=== PATIENT | female | born 1985 | race Caucasian/White ===

== ENCOUNTER 2016-10-01 00:01 | Inpatient (IN) | payer OTHER, BC ==
[~2016-10-01] VITALS: Ht 157.5 cm; Wt 70.5 kg
[2016-10-01] VITALS (22 sets, daily range): BP systolic 100–143; BP diastolic 51–83; PULSE 49–114; TEMP 89–98.7
[~2016-10-01 00:01] MED LIST: ENBREL50 MG/ML SC; FLOMAX 0.40.4 MG/CAP PO; NORCO 325 MG-51 TAB PO; PERCOCET 325 MG1 TA2 PO; TRINESSA 281 TAB PO; ULTRAM 50MG TAB50 MG PO; ZOFRAN8 MG PO
[2016-10-01] MEDS ORDERED: MEDROL 4MG DOSPA4 MG PO (00:31)
[2016-10-01] MEDS ORDERED: BENADRYL25 M2 PO (00:32)
[2016-10-01 01:47] LABS: BASO % 0.2 % (0.0-2.0); EOS # 0.1 (0.0-0.7); EOS % 1.3 % (0-4.0); GRAN # 7.4 (1.4-6.5); LYMPH # 1.9 (1.2-3.4); MEAN CELL VOLUME 77 fl (80.0-100.0); MEAN CORPUSCULAR HGB CONC 30 g/dl (33.0-37.0); MEAN PLATELET VOLUME 12.2 fl (7.4-10.4); MONO # 0.7 (0.1-0.6); MONO % 6.8 % (1.7-9.3); PLATELET COUNT 242 K/mm3 (130-400); RED BLOOD COUNT 4.01 M/mm3 (4.10-5.30); REDCELL DISTRIBUTION WIDTH-CV 17.9 % (11.5-14.5); WHITE BLOOD COUNT 10.3 K/mm3 (4.8-10.8)
[2016-10-01 01:48] LABS: HEMATOCRIT 30.7 % (37.0-47.0); HEMOGLOBIN 9.3 g/dl (12.5-16.0); MEAN CORPUSCULAR HEMOGLOBIN 23 pg (27.0-31.0)
[2016-10-01 03:02] LABS: ADJUSTED CALCIUM 9.3 mg/dL (8.4-10.2); ALBUMIN 3.5 gm/dL (3.5-5.0); BILIRUBIN,TOTAL 0.7 mg/dL (0.0-1.0); CALCIUM 8.9 mg/dL (8.4-10.2); CREATININE, serum 0.56 mg/dL (0.52-1.25); POTASSIUM 3.9 mmol/L (3.4-5.0); TOTAL PROTEIN 7.1 gm/dL (6.4-8.2)
[2016-10-01 03:21] LABS: PH 5 (5-8); SQUAMOUS EPITHELIAL 0-2 /hpf; URINE APPEARANCE Clear; URINE BACTERIA None Seen /hpf; URINE BILIRUBIN Negative (NEGATIVE); URINE BLOOD Negative (NEGATIVE); URINE COLOR Yellow; URINE GLUCOSE Negative (NEGATIVE); URINE KETONE Negative (NEGATIVE); URINE UROBILINOGEN Negative (NEGATIVE); URINE WBC 0-2 /hpf
[2016-10-02] VITALS (17 sets, daily range): BP systolic 106–120; BP diastolic 59–77; PULSE 53–85; TEMP 97.7–98.5
[2016-10-02 06:47] LABS: MEAN CELL VOLUME 80 fl (80.0-100.0); MEAN CORPUSCULAR HGB CONC 29 g/dl (33.0-37.0); MEAN PLATELET VOLUME 11.2 fl (7.4-10.4); PLATELET COUNT 163 K/mm3 (130-400); RED BLOOD COUNT 2.61 M/mm3 (4.10-5.30); REDCELL DISTRIBUTION WIDTH-CV 18.1 % (11.5-14.5); WHITE BLOOD COUNT 17.5 K/mm3 (4.8-10.8)
[2016-10-02 06:54] LABS: ADD PATHOLOGY DIFF REVIEW NO; HEMATOCRIT 20.9 % (37.0-47.0); HEMOGLOBIN 6.1 g/dl (12.5-16.0); MEAN CORPUSCULAR HEMOGLOBIN 23 pg (27.0-31.0)
[2016-10-02 09:02] LABS: ANISOCYTOSIS 2+; BAND 4 % (0-10); HYPOCHROMIA 2+; MICROCYTOSIS 2+; NEUTROPHILS 75 % (42.0-75.2); TOTAL CELLS COUNTED 100
[2016-10-02 09:03] LABS: POLYCHROMASIA 1+
[2016-10-02 09:04] LABS: PLATELET ESTIMATE NORMAL (NORMAL)
[2016-10-03 07:37] LABS: BASO % 0.2 % (0.0-2.0); EOS # 0.1 (0.0-0.7); EOS % 0.6 % (0-4.0); GRAN # 8.9 (1.4-6.5); GRAN % 67.3 % (42.2-75.2); LYMPH # 2.9 (1.2-3.4); LYMPH % 22.3 % (20.0-51.0); MEAN CELL VOLUME 82 fl (80.0-100.0); MEAN CORPUSCULAR HGB CONC 30 g/dl (33.0-37.0); MEAN PLATELET VOLUME 11.8 fl (7.4-10.4); MONO # 0.9 (0.1-0.6); MONO % 7.1 % (1.7-9.3); PLATELET COUNT 156 K/mm3 (130-400); RED BLOOD COUNT 3.13 M/mm3 (4.10-5.30); REDCELL DISTRIBUTION WIDTH-CV 17.8 % (11.5-14.5); WHITE BLOOD COUNT 13.2 K/mm3 (4.8-10.8)
[2016-10-03 07:54] LABS: HEMATOCRIT 25.8 % (37.0-47.0); HEMOGLOBIN 7.8 g/dl (12.5-16.0); MEAN CORPUSCULAR HEMOGLOBIN 25 pg (27.0-31.0)
[2016-10-03] MEDS ORDERED: PERCOCET 325 MG1 TA2 PO (08:26)
[2016-10-03] MEDS ORDERED: IBU800 M1 PO (08:26)
[2016-10-03 08:29] VITALS: BP 100/60; PULSE 51; TEMP 98.2
== END 2016-10-03 11:55 | disposition home or self-care (01) | DRG 775 ==
LOC: LDRO 00:01 → LDR 01:00 → OB 01:00
PROVIDERS: Obstetrics & Gynecology; Student in an Organized Health Care Education/Training Program
PROC: 10E0XZZ Delivery of Products of Conception, External Approach (ICD-10-PCS; principal; 2016-10-01)
PROC: 0HQ9XZZ Repair Perineum Skin, External Approach (ICD-10-PCS; 2016-10-01)
DX: O99.824 Streptococcus B carrier state complicating childbirth (principal); O99.89 Other specified diseases and conditions complicating pregnancy, childbirth and the puerperium; M06.9 Rheumatoid arthritis, unspecified; O77.0 Labor and delivery complicated by meconium in amniotic fluid; O69.1XX0 Labor and delivery complicated by cord around neck, with compression, not applicable or unspecified; O69.89X0 Labor and delivery complicated by other cord complications, not applicable or unspecified; O70.0 First degree perineal laceration during delivery; O99.02 Anemia complicating childbirth; D64.9 Anemia, unspecified; Z3A.39 39 weeks gestation of pregnancy; Z37.0 Single live birth
CPT/HCPCS: J1720; J2405; J2540; J2590; J2795; J7120; P9016

== ENCOUNTER 2018-02-25 09:55 | Emergency (ER) | payer BC ==
[~2018-02-25] VITALS: Ht 157.5 cm; Wt 61.4 kg
[~2018-02-25 09:55] MED LIST changes: +BENADRYL25 M2 PO; +IBU800 M1 PO; +MEDROL 4MG DOSPA4 MG PO
[2018-02-25 10:03] VITALS: TEMP 97.9
[2018-02-25 11:03] LABS: BASO % 0.3 % (0.0-2.0); EOS # 0.1 (0.0-0.7); EOS % 0.7 % (0-4.0); GRAN # 4.1 (1.4-6.5); GRAN % 60.5 % (42.2-75.2); HEMOGLOBIN 11.9 g/dl (12.5-16.0); LYMPH % 29.9 % (20.0-51.0); MEAN CELL VOLUME 90 fl (80.0-100.0); MEAN CORPUSCULAR HEMOGLOBIN 30 pg (27.0-31.0); MEAN CORPUSCULAR HGB CONC 33 g/dl (33.0-37.0); MEAN PLATELET VOLUME 10.6 fl (7.4-10.4); MONO # 0.6 (0.1-0.6); MONO % 8.3 % (1.7-9.3); PLATELET COUNT 237 K/mm3 (130-400); RED BLOOD COUNT 4.02 M/mm3 (4.10-5.30); REDCELL DISTRIBUTION WIDTH-CV 12.6 % (11.5-14.5)
[2018-02-25 11:09] LABS: COLLECTION METHOD CLEAN CATCH
[2018-02-25 11:18] LABS: ALANINE AMINOTRANSFERASE 32 U/L (9-52); ALBUMIN 3.7 gm/dL (3.5-5.0); ALKALINE PHOSPHATASE 64 U/L (50-136); ANION GAP 11 mmol/L (7-16); AST,SGOT 38 U/L (15-37); BILIRUBIN,TOTAL 1.1 mg/dL (0.0-1.0); BLOOD UREA NITROGEN 8 mg/dL (7-17); CALCIUM 8.3 mg/dL (8.4-10.2); CARBON DIOXIDE 26 mmol/L (22-30); CHLORIDE 102 mmol/L (98-107); CREATININE, serum 0.54 mg/dL (0.52-1.25); GLUCOSE 83 mg/dL (74-106); SODIUM 139 mmol/L (137-145); TOTAL PROTEIN 7.3 gm/dL (6.4-8.2)
[2018-02-25 11:24] LABS: LIPASE 32 U/L (23-300)
[2018-02-25 11:31] LABS: TROPONIN-I < 0.012 ng/mL (0.000-0.034)
[2018-02-25 11:38] LABS: PH 7 (5-8); URINE APPEARANCE Clear; URINE BACTERIA None Seen /hpf; URINE BILIRUBIN Negative (NEGATIVE); URINE BLOOD Negative (NEGATIVE); URINE COLOR Colorless; URINE GLUCOSE Negative (NEGATIVE); URINE KETONE Negative (NEGATIVE); URINE LEUKOCYTE ESTERASE Negative (NEGATIVE); URINE NITRATE Negative (NEGATIVE); URINE PROTEIN(semi-quant) Negative (NEGATIVE); URINE RBC 0-2 /hpf; URINE UROBILINOGEN Negative (NEGATIVE)
[2018-02-25] MEDS ORDERED: NORCO 325 MG-51 TAB PO (12:30)
[2018-02-25 12:52] VITALS: BP 103/65; PULSE 66
== END 2018-02-25 12:53 | disposition home or self-care (01) ==
LOC: COL.ER 09:55
PROVIDERS: Physician Assistant
DX: R07.89 Other chest pain (principal); Z90.49 Acquired absence of other specified parts of digestive tract; Z90.89 Acquired absence of other organs; Z87.442 Personal history of urinary calculi; Z98.890 Other specified postprocedural states
CPT/HCPCS: J2270; J2405; J7030

== ENCOUNTER → 2018-03-24 | Outpatient (CLI) | payer BC | LOC: COL.VAS 07:58 | DX: R07.9 Chest pain, unspecified (principal); R93.8 Abnormal findings on diagnostic imaging of other specified body structures; R94.31 Abnormal electrocardiogram [ECG] [EKG] ==

== ENCOUNTER 2019-11-02 07:17 | Inpatient (IN) | payer BC ==
[~2019-11-02] VITALS: Ht 157.5 cm; Wt 75.0 kg
[2019-11-02] VITALS (38 sets, daily range): BP systolic 96–132; BP diastolic 61–88; PULSE 58–109; TEMP 97.8–98.9
--- NOTE | 2019-11-02 07:20 | NUR ---
Presents to labor and delivery. Here for induction of labor. Iv start to left hand, blood drawn and sent to lab. Assessment done, questions offered and answered.
[2019-11-02 08:53] LABS: BASO % 0.1 % (0.0-2.0); EOS % 0.4 % (0-4.0); GRAN # 5.5 (1.4-6.5); GRAN % 70.5 % (42.2-75.2); LYMPH # 1.5 (1.2-3.4); LYMPH % 19.5 % (20.0-51.0); MEAN CELL VOLUME 81 fl (80.0-100.0); MEAN CORPUSCULAR HGB CONC 32 g/dl (33.0-37.0); MEAN PLATELET VOLUME 11.7 fl (7.4-10.4); MONO # 0.7 (0.1-0.6); MONO % 8.5 % (1.7-9.3); PLATELET COUNT 219 K/mm3 (130-400); RED BLOOD COUNT 3.69 M/mm3 (4.10-5.30); REDCELL DISTRIBUTION WIDTH-CV 15.8 % (11.5-14.5)
--- NOTE | 2019-11-02 09:00 | NUR ---
0910 Ambulates to the bathroom and back. Starting to breathe through contractions. Denies wanting any pain medication.
[2019-11-02 09:11] LABS: HEMOGLOBIN 9.5 g/dl (12.5-16.0); MEAN CORPUSCULAR HEMOGLOBIN 26 pg (27.0-31.0)
--- NOTE | 2019-11-02 10:00 | NUR ---
Request epidural. Anesthesia notified of request. Fluid bolus started. Breathes through contractions.
--- NOTE | 2019-11-02 10:15 | NUR ---
Anesthesia here, visits with patient. 1020 Sits up for epidural. 1030 Catheter placed and test dose given by anesthesia Chris. Lies down after epidural.
--- NOTE | 2019-11-02 11:00 | NUR ---
Rests in bed, alert. 1108 Kinsey catheter placed per sterile technique. Moderate amount of clear yellow urine noted. Celina-care given and repositioned.
--- NOTE | 2019-11-02 11:15 | NUR ---
heart rate down in the nintys for thirty seconds, then back up to 150s. Reposition in bed.
--- NOTE | 2019-11-02 12:15 | NUR ---
Dr. Bach called and updated. Let him know that patient having a few lates and having some variables down in the nintys for thirty seconds and then back up to 130s. States coming over from [facility]. 1221 Dr. Bach here, vag check done. Reports dilated to seven. Dr. Bach states if you have to turn the pitocin off, that is okay with him. [address] Bach back. Let him know that heart tones in the nintys and not coming back up with repositioning, pitocin off, and fluid bolus. 1235 Dr. Bach here, evaluates patient. Vag check done, reports dilated to a good seven. Visits with patient and spouse. Stays at the back desk.
--- NOTE | 2019-11-02 13:35 | NUR ---
Restarted pitocin at [address] Bach here, views strip.
--- NOTE | 2019-11-02 14:00 | NUR ---
heart tones down in the nintys for seventy seconds, then back up to 120s Dr. Bach shown strip.
--- NOTE | 2019-11-02 14:15 | NUR ---
Repositioned patient in bed, pad changed. heart tones down in the seventys to eightys for eighty seconds then back up to 130s. Dr. Bach shown strip.
--- NOTE | 2019-11-02 14:45 | NUR ---
Dr. Bach views strip. States going back to office.
--- NOTE | 2019-11-02 15:30 | NUR ---
1532 Patient complete. Having emisis, sitting up. 1540 Starts pushing with contractions. Does well. 1548 Dr. Bach called to come for delivery. 1553 Doctor Mikala here. Preps for delivery. 1557 Spontaneous delivery of baby girl by Dr. Bach. 1600 Spontaneous delivery of placenta by Dr. Bach. Pitocin 333 ccs an hour stated as ordered and per protocol.
--- NOTE | 2019-11-02 16:15 | NUR ---
Rests in bed, alert, holds baby lovingly. Repair work done by Dr. Bach. Denies any needs at this time.
--- NOTE | 2019-11-02 16:45 | NUR ---
Rests in bed, alert, holds baby lovingly. Fundus firm with small amount of red color drainage. Denies any discomfort or needs at this time.
--- NOTE | 2019-11-02 18:00 | NUR ---
Rests in bed, alert. Eating pm meal. Denies any needs at this time.
[2019-11-03 03:00] VITALS: BP 108/71; PULSE 62; TEMP 97.6
[2019-11-03 08:24] VITALS: BP 102/63; PULSE 68; TEMP 97.7
[2019-11-03] MEDS ORDERED: MOTRIN 800800 MG/TAB PO (10:09)
== END 2019-11-03 17:05 | disposition home or self-care (01) | DRG 807 ==
LOC: LDR 07:17 → OB 21:14
PROVIDERS: ADMIT Obstetrics & Gynecology
PROC: 10E0XZZ Delivery of Products of Conception, External Approach (ICD-10-PCS; principal; 2019-11-02)
PROC: 0KQM0ZZ Repair Perineum Muscle, Open Approach (ICD-10-PCS; 2019-11-02)
PROC: 3E033VJ Introduction of Other Hormone into Peripheral Vein, Percutaneous Approach (ICD-10-PCS; 2019-11-02)
PROC: 10907ZC Drainage of Amniotic Fluid, Therapeutic from Products of Conception, Via Natural or Artificial Opening (ICD-10-PCS; 2019-11-02)
DX: O48.0 Post-term pregnancy (principal); Z37.0 Single live birth; O99.89 Other specified diseases and conditions complicating pregnancy, childbirth and the puerperium; O99.013 Anemia complicating pregnancy, third trimester; D64.9 Anemia, unspecified; M06.9 Rheumatoid arthritis, unspecified; O70.1 Second degree perineal laceration during delivery; Z3A.41 41 weeks gestation of pregnancy
CPT/HCPCS: J2590; J7120

== ENCOUNTER → 2019-12-07 | Outpatient (CLI) | payer BC ==
[~2019-12-07] MED LIST changes: +MOTRIN 800800 MG/TAB PO
--- NOTE | 2019-12-07 16:33 | NUR ---
Pt, cassandra Jose for feeding evaluation of her one month old baby girl, Susannah Loyola because Susannah takes an hour to drink 4 oz from her bottle. They were referred by Dr. Guajardo for suck evaluation. Susannah was born on [birth year] and weighed 7#2oz. She has been bottle feeding since and weight gain is WNL, however feedings are exceedingly long for a one month old baby. We elected to leave Susannah's clothes on for weighing since her weight gain is WNL. Start weight was 8#9.7oz. LC examines Susannah's mouth, notes a high arch palate and week suck that may make compression and vacuum of the bottle nipple more difficult. LC feeds Susannah with the Dr. Davis's bottle she is currently using. After 10 minutes of suckling with chin/tongue support she transfers only 26ml. Infant generally keeping tongue across gum line but it pops off occassionally. LC transfers milk into a bottle with the hospital issue similac nipple and she is able to transfer milk easily but is more messy. Pt advised on keeping Susannah more upright and use paced feeding to help manage the milk flow. Susannah does not struggle with the flow rate with coughing or choking, just the dribble at the corner of the mouth. Pt was also shown on how to feed Susannah on her side and she seemed to tolerate the feeding this way as well. Susannah's total intake was 120 ml, and she did the second portion of the feeding in about 15 minutes. Pt provided a few hospital nipples, and has a higher flow rate for the Dr. Davis's she will try. Pt relieved the leaking is not a significant amount and feels better about using the higher flow nipple knowing Susannah is not loosing much milk. POC: Feed with higher flow nipple using paced or sidelying position. F/U: As needed with LC or doctor Guajardo. Questions invited and answered.
== END ==
LOC: LAC 14:20
DX: Z39.1 Encounter for care and examination of lactating mother (principal)